=== PATIENT | female | born 1970 | race Caucasian/White ===

== ENCOUNTER 2020-03-28 13:03 | Emergency (ER) | payer SELFPAY ==
[2020-03-28 13:17] VITALS: BP 137/83
[2020-03-28] MEDS ORDERED: HYDROCODONE/ACETAMINOPHEN 5-325 MG TABLET PO ONE (13:29)
[2020-03-28] MEDS ORDERED: CYCLOBENZAPRINE HCL 10 MG TABLET PO ONE (13:29)
--- NOTE | 2020-03-28 14:07 | RADIOLOGY REPORT (SQ) ---
EXAM DESCRIPTION: HUMERUS RIGHT IMAGES COMPLETED DATE/TIME: 03/28/2020 1:57 pm REASON FOR STUDY: injury COMPARISON: None. NUMBER OF VIEWS: Two views. TECHNIQUE: Two radiographic images were acquired of the right humerus to include elbow and shoulder in at least one projection. LIMITATIONS: None. FINDINGS: MINERALIZATION: Normal. BONES: No acute fracture or dislocation. No worrisome bone lesions. SOFT TISSUES: No obvious swelling or foreign body. OTHER: No other significant finding. IMPRESSION: NO RADIOGRAPHIC EVIDENCE OF ACUTE INJURY. TECHNICAL DOCUMENTATION: JOB ID: [id number] [place]-72 2010 [employer]- All Rights Reserved Reading location - IP/workstation name: [employer]
--- NOTE | 2020-03-28 14:08 | RADIOLOGY REPORT (SQ) ---
EXAM DESCRIPTION: WRIST RIGHT 3 VIEWS IMAGES COMPLETED DATE/TIME: 03/28/2020 1:57 pm REASON FOR STUDY: injury COMPARISON: None. EXAM PARAMETERS: NUMBER OF VIEWS: Three views. TECHNIQUE: AP, lateral and oblique radiographic images acquired of the right wrist. LIMITATIONS: None. FINDINGS: MINERALIZATION: Normal. BONES: No acute fracture or dislocation. 2 mm old ulnar styloid avulsion. No worrisome bone lesions . JOINTS: No effusion. SOFT TISSUES: No significant soft tissue swelling. No radiopaque foreign body. OTHER: No other significant finding. IMPRESSION: No acute fracture or dislocation. 2 mm old ulnar styloid avulsion. TECHNICAL DOCUMENTATION: JOB ID: [id number] [place]-72 2010 [employer]- All Rights Reserved Reading location - IP/workstation name: [email or web address]
--- NOTE | 2020-03-28 14:10 | RADIOLOGY REPORT (SQ) ---
EXAM DESCRIPTION: SHOULDER RIGHT 2 OR MORE VIEWS IMAGES COMPLETED DATE/TIME: 03/28/2020 1:57 pm REASON FOR STUDY: injury COMPARISON: 10/16/2011 NUMBER OF VIEWS: Three views. TECHNIQUE: Internal rotation, external rotation, and Y view images acquired of the right shoulder. LIMITATIONS: None. FINDINGS: MINERALIZATION: Normal. BONES: No acute fracture. Similar mild AC joint arthrosis. No worrisome bone lesions. JOINTS: No dislocation. VISUALIZED LUNGS AND RIBS: No pneumothorax. No rib fracture. SOFT TISSUES: No radiopaque foreign body. OTHER: No other significant finding. IMPRESSION: NO RADIOGRAPHIC EVIDENCE OF ACUTE INJURY. TECHNICAL DOCUMENTATION: JOB ID: [id number] [place]-72 2010 [employer] All Rights Reserved Reading location - IP/workstation name: [email or web address]
--- NOTE | 2020-03-28 14:12 | RADIOLOGY REPORT (SQ) ---
EXAM DESCRIPTION: T SPINE AP/LAT IMAGES COMPLETED DATE/TIME: 03/28/2020 1:57 pm REASON FOR STUDY: injury COMPARISON: None. NUMBER OF VIEWS: Two views. TECHNIQUE: AP and lateral radiographic images acquired of the thoracic spine. LIMITATIONS: None. FINDINGS: MINERALIZATION: Normal. ALIGNMENT: Intact. VERTEBRAE: No fracture or bone lesion. Maintained height, normal segmentation. DISCS: Multilevel disc space narrowing with osteophytes. HARDWARE: None in the spine. MEDIASTINUM AND SOFT TISSUES: Normal heart size and aortic contour. No soft tissue abnormality. VISUALIZED LUNG MARTIN: Clear. OTHER: No other significant finding. IMPRESSION: SPONDYLOSIS WITHOUT BONE LESION OR FRACTURE. TECHNICAL DOCUMENTATION: JOB ID: [id number] [place]-72 2010 [employer]- All Rights Reserved Reading location - IP/workstation name: [email or web address]
--- NOTE | 2020-03-28 14:14 | RADIOLOGY REPORT (SQ) ---
EXAM DESCRIPTION: L SPINE WHOLE IMAGES COMPLETED DATE/TIME: 03/28/2020 1:57 pm REASON FOR STUDY: injury COMPARISON: None. NUMBER OF VIEWS: Five views including obliques. TECHNIQUE: AP, lateral, oblique, and sacral radiographic images acquired of the lumbar spine. LIMITATIONS: None. FINDINGS: MINERALIZATION: Normal. SEGMENTATION: Normal. No transitional anatomy. ALIGNMENT: Normal. VERTEBRAE: Maintained height. No fracture or worrisome bone lesion. DISCS: No significant disc space narrowing or osteophytes. POSTERIOR ELEMENTS: Pedicles and facets are intact. No pars defect or posterior arch defects. Facet arthropathy is present. HARDWARE: None in the spine. PARASPINAL SOFT TISSUES: Normal. PELVIS: Intact as visualized. No fractures or worrisome bone lesions. SI joints intact with mild dege nerative changes. OTHER: No other significant finding. IMPRESSION: No evidence for acute injury. TECHNICAL DOCUMENTATION: JOB ID: [id number] [place]-72 2010 [employer]- All Rights Reserved Reading location - IP/workstation name: [email or web address]
--- NOTE | 2020-03-28 14:21 | ER Document Report ---
HPI - HPI Patient complains to provider of: fall Time Seen by Provider: 03/28/20 13:23 Pain Level: 1 Context: 49-year-old female past medical history significant for anxiety and insomnia presents to the emergency room after sustaining a trip and fall in her garage 2 days ago. States she landed on her right side and low back. Denies hitting her head. Denies any loss of consciousness. She is complaining of right shoulder, right humerus, right wrist, mid and low back pain. She denies any loss control of her bowels or bladder. No saddle anesthesia. No generalized weakness. New numbness or tingling to her upper or lower extremities. Denies any urinary issues. States she has been taking ibuprofen without relief. Associated Symptoms: None Exacerbated by: Movement Relieved by: Denies Similar symptoms previously: No Recently seen / treated by doctor: No - ROS Systems Reviewed and Negative: Yes All other systems reviewed and negative - NEURO Neurology: DENIES: Headache, Weakness - CARDIOVASCULAR Cardiovascular: DENIES: Chest pain - GASTROINTESTINAL Gastrointestinal: DENIES: Abdominal Pain, Nausea - URINARY Urinary: DENIES: Dysuria, Urgency, Frequency - REPRODUCTIVE Reproductive: DENIES: : - MUSCULOSKELETAL Musculoskeletal: REPORTS: Extremity pain, Back Pain - DERM Skin Color: Normal Skin Problems: None Past Medical History - General Information source: Patient - Social History Smoking Status: Current Every Day Smoker Frequency of alcohol use: None Drug Abuse: Marijuana Family History: Reviewed & Not Pertinent Psychiatric Medical History: Reports: Hx Depression Past Surgical History: Reports: Hx Hysterectomy Vertical Provider Document - CONSTITUTIONAL Agree With Documented VS: Yes Exam Limitations: No Limitations General Appearance: Mild Distress - INFECTION CONTROL TRAVEL OUTSIDE OF THE [place] IN LAST 30 DAYS: No - HEENT HEENT: Atraumatic, Normocephalic - NECK Neck: Normal Inspection, Supple, Thyroid Normal - RESPIRATORY Respiratory: Breath Sounds Normal, No Respiratory Distress, Chest Non-Tender - CARDIOVASCULAR Cardiovascular: No Murmur, Bradycardia - BACK Back: Abnormal Inspection - Tenderness on palpation to the thoracic spine from T4-T6, tenderness to the lower lumbar region from L4-S1. There is tenderness over the right sciatic notch. No step-offs, no deformities. Negative straight leg raising bilaterally.. negative: CVA Tenderness-Right, CVA Tenderness-Left - MUSCULOSKELETAL/EXTREMETIES Musculoskeletal/Extremeties: Tender - Tenderness on the right shoulder to palpation over the AC joint, painful range of motion with internal and external rotation of the right shoulder. Tenderness on palpation to the mid right humerus but no deformity noted. Full range of motion to right elbow without pain. Notes: Tenderness on palpation to the distal right radius. Painful range of motion with lateral movement to the right wrist. No obvious deformity. No swelling. - NEURO Level of Consciousness: Awake, Alert Motor/Sensory: No Motor Deficit, No Sensory Deficit Notes: Positive right radial pulse. Capillary refill less than 3 seconds. Ambulatory with a steady gait. Neurovascularly intact. Pe Manager strength is equal and adequate bilaterally. - DERM Integumentary: Warm, Dry Course - Re-evaluation Re-evalutation: 03/28/20 14:40 Patient is resting comfortably with decreased pain. Ambulatory with steady gait. Neurovascularly intact. Reviewed all x-ray results with patient, discussed the spondylosis of the thoracic spine. The old avulsion fracture of the right ulnar styloid. Right shoulder AC arthrosis. Lumbar spine with degenerative disc disease. However no acute fractures. Patient was counseled to continue with Tylenol and or Motrin as needed for pain. Flexeril as prescribed. Outpatient follow-up with primary care physician if not improving in 2 to 3 days. Patient was given strict return to the emergency room guidelines. Return for any new or worsening symptoms. All questions were answered. Patient verbalized understanding and agrees with plan of care. - Vital Signs Vital signs: Temp Pulse Resp BP Pulse Ox 97.6 F 57 L 20 137/83 H 99 03/28/20 13:13 03/28/20 13:13 03/28/20 13:13 03/28/20 13:13 03/28/20 13:13 - Laboratory Results Critical Laboratory Results Reviewed: No Critical Results - Radiology Results Critical Radiology Results Reviewed: No Critical Results Discharge - Discharge Clinical Impression: Arthrosis of right shoulder region, Degenerative disc disease, lumbar, Spondylosis, thoracic, Back pain with right-sided sciatica Fall Qualifiers: Encounter type: initial encounter Qualified Code(s): W19.XXXA - Unspecified fall, initial encounter Contusion Qualifiers: Encounter type: initial encounter Contusion area: shoulder Laterality: right Qualified Code(s): S40.011A - Contusion of right shoulder, initial encounter Condition: Stable Disposition: HOME, SELF-CARE Instructions: Arthritis ([facility]), Contusion ([facility]), Sciatica ([facility]), Shoulder Injury ([facility]) Additional Instructions: You have no acute fractures noted on any of your x-rays. Take the Flexeril along with Tylenol and or Motrin as needed for pain. Follow-up with your primary care physician if not improving to 3 days. Return to the emergency room for any new or worsening symptoms. Prescriptions: Cyclobenzaprine HCl [Flexeril 10 mg Tablet] 10 mg PO TIDP PRN #15 tab PRN Reason: Forms: Return to Work Referrals: KAREL MARTIN MD [Primary Care Provider] - Follow up as needed
--- OUTSIDE RECORDS SUMMARY | 2020-03-30 10:43 | XMS REPORT ---
:1970 Author Organization [facility] Address [facility] [address] [place] [id number] Care Team Providers Name Role Phone Farhana Manuel Attending Clinician Unavailable Eva Elise Attending Clinician Unavailable Deonte Padilla Attending Clinician Unavailable Meagan Cedeno Attending Clinician Unavailable Allergies, Adverse Reactions, Alerts This patient has no known allergies or adverse reactions. Medications This patient has no known medications. Problems This patient has no known problems. Procedures Procedure Date / Time Performed Performing Clinician Devic e OFFICE OUTPATIENT VISIT 15 MINUTES 2017-02-14 16:08:00 OFFICE OUTPATIENT VISIT 25 MINUTES 2016-09-13 10:43:00 OFFICE OUTPATIENT VISIT 15 MINUTES 2016-03-16 09:49:00 OFFICE OUTPATIENT VISIT 25 MINUTES 2015-12-16 10:47:00 OFFICE OUTPATIENT VISIT 15 MINUTES 2015-09-03 12:09:00 OFFICE OUTPATIENT VISIT 15 MINUTES 2015-06-15 09:44:00 OFFICE OUTPATIENT VISIT 15 MINUTES 2015-05-04 13:45:00 Results Test Description Test Time Test Comments Text Results Atomic Results Result Comments 7-Aminoclonazepam 2018-09-04 22:52:00 Test Item Value Reference Range Comments 7-Aminoclonazepam (test code = 89276-3) Not Detected [id number] 22:52:00 Test Item Value Reference Range Comments Nordiazepam (test code = 34035-7) Not Detected Orhewpve8249-02-60 22:52:00 Test Item Value Reference Range Comments Oxazepam (test code = 08041-2) Not Detected Uefzajyryedvn0388-53-48 22:52:00 Test Item Value Reference Range Comments Buprenorphine (test code = 3414-0) Not Detected Ethyl Sfmppqylyja6278-49-04 22:52:00 Test Item Value Reference Range Comments Ethyl Glucuronide (test code = 80195-4) Detected Dxbilpnuf2889-18-11 22:52:00 Test Item Value Reference Range Comments Methadone (test code = 3773-9) Not Detected Okshocw9495-13-26 22:52:00 Test Item Value Reference Range Comments Codeine (test code = 01390-8) Not Detected [id number] 22:52:00 Test Item Value Reference Range Comments pH (test code = 39534-0) 6.2 U/L Vtgxdnqfcqf7172-13-33 22:52:00 Test Item Value Reference Range Comments Hydrocodone (test code = 38143-2) Not Detected Jwgxhaoddltne1358-54-83 22:52:00 Test Item Value Reference Range Comments Hydromorphone (test code = 9834-3) Not Detected Xitbitaff1900-94-14 22:52:00 Test Item Value Reference Range Comments Oxycodone (test code = 33220-1) Not Detected Cccadepemeh7062-82-29 22:52:00 Test Item Value Reference Range Comments Oxymorphone (test code = 29754-1) Not Detected Ktrcgjgqrtpsw3842-08-38 22:52:00 Test Item Value Reference Range Comments Phencyclidine (test code = 8234-7) Not Detected Mufoloyboqdbzym4892-76-63 22:52:00 Test Item Value Reference Range Comments Benzoylecgonine (test code = 8187-7) Not Detected Uhmalrekapo5967-10-20 22:52:00 Test Item Value Reference Range Comments Amphetamine (test code = 34087-3) Detected Hjcvhmkxtx0498-08-67 22:52:00 Test Item Value Reference Range Comments Gabapentin (test code = 9738-6) Not Detected Aamxsvwl3516-53-85 22:52:00 Test Item Value Reference Range Comments Fentanyl (test code = 28410-4) Not Detected Whypasug7858-40-21 22:52:00 Test Item Value Reference Range Comments Tramadol (test code = 78051-9) Not Detected Thyroid Panel With TSH (S2515) (32912)2015-05-05 00:00:00 Test Item Value Reference Range Comments T3 Uptake (test code = 3050-2) 29 % 22-35 T4 (test code = 3026-2) 6.0 ug/dL 4.5-12.0 Free Thyroxine Index (test code = 07659-5) 1.7 1.4-3 .8 TSH (test code = 3016-3) 0.780 uIU/mL 0.350-4.500 CMP w/ ESTIMATED GFR (S2402) (91159)2015-05-05 00:00:00 Test Item Value Reference Range Comments Albumin (test code = 1751-7) 4.1 g/dL 3.5-5.2 Total Protein (test code = 2885-2) 6.4 g/dL 6.0-8.3 Alkaline Phosphatase (test code = 6768-6) 45 U/L 39-117 ALT/SGPT (test code = 1742-6) 8 U/L 0-35 Est GFR, NonAfrican [place]er (test code = >89 mL/min 84077-9) Glucose (test code = 2345-7) 92 mg/dL 70-99 Creatinine (test code = 2160-0) 0.60 mg/dL 0.50-1.10 AST/SGOT (test code = 1920-8) 11 U/L 0-37 Potassium (test code = 2823-3) 4.3 mEq/L 3.5-5.3 BUN (test code = 3094-0) 9 mg/dL 6-23 Chloride (test code = 2075-0) 106 mEq/L 96-112 Est GFR, (test code = 18184-4) >89 mL/min Sodium (test code = 2951-2) 137 mEq/L 135-145 CO2 (test code = 8-9) 26 mEq/L 19-32 Bilirubin, Total (test code = 1974-2) 0.6 mg/dL 0.2-1.2 Calcium (test code = 06393-4) 9.0 mg/dL 8.4-10.5 CBC w/ Diff (P37297) (78334)2015-05-05 00:00:00 Test Item Value Reference Range Comments Lymph % (test code = 736-9) 29 % 12-46 MCH (test code = 785-6) 29.9 pg 26.0-34.0 Absolute Baso (test code = 0.1 K/uL 0.0-0.1 704-7) Platelet Count (test code = 273 K/uL 150-400 777-3) Absolute Ripley (test code = 0.6 K/uL 0.1-1.0 742-7) Hemoglobin (test code = 718-7) 12.4 g/dL 12.0-15.0 Eos % (test code = 713-8) 3 % 0-5 RBC (test code = 789-8) 4.15 MIL/uL 3.87-5.11 Granulocyte % (test code = 60 % 43-77 770-8) MCV (test code = 787-2) 89.6 fL 78.0-100.0 Ripley % (test code = 5905-5) 7 % 3-12 Absolute Eos (test code = 711-2) 0.2 K/uL 0.0-0.7 Absolute Lymph (test code = 2.3 K/uL 0.7-4.0 731-0) Baso % (test code = 706-2) 1 % 0-1 Smear Review (test code = Criteria for review not met 5909-7) Hematocrit (test code = 4544-3) 37.2 % 36.0-46.0 MCHC (test code = 786-4) 33.3 g/dL 30.0-36.0 Absolute Gran (test code = 4.8 K/uL 1.7-7.7 751-8) WBC (test code = 6690-2) 8.0 K/uL 4.0-10.5 MPV (test code = 69011-6) 10.6 fL 8.6-12.4 RDW (test code = 788-0) 13.7 % 11.5-15.5 Assessments Condition Name Status Diagnosis Date Treating Clinici an Blood tests for routine general physical Active examination Anxiety Active Anxiety Active Anxiety Active Adult body mass index 26.0-26.9 Active Adult body mass index 26.0-26.9 Active Adult body mass index 26.0-26.9 Active Muscle spasm of back Active Muscle spasm of back Active Muscle spasm of back Active Muscle spasm of back Active Body mass index (BMI) of 27.0-27.9 in adult Active Body mass index (BMI) of 27.0-27.9 in adult Active Body mass index (BMI) of 27.0-27.9 in adult Active Body mass index (BMI) of 27.0-27.9 in adult Active Body mass index (BMI) of 27.0-27.9 in adult Active Body mass index (BMI) of 27.0-27.9 in adult Active Anxiety Active Anxiety Active Anxiety Active Anxiety Active Insomnia Active Insomnia Active Insomnia Active Insomnia Active Insomnia Active Insomnia Active Insomnia Active Encounter for health education Active Encounter for health education Active Encounter for health education Active Encounter for health education Active Encounter for health education Active Encounter for health education Active Encounter for health education Active Encounters Start End Encounter Admission Attending Care Care Encounter Date/Time Date/Time Type Type Clinicians Facility Department ID 2018-09-04 2018-09-04 [facility] 32 [id number] 00:00:00 00:00:00 [facility] [id number] Evaluation Services [id number] 2017-02-14 2017-02-14 Outpatient K[facility] [id number] 16:08:00 16:08:00 [facility] 2016-09-13 2016-09-13 Outpatient Lois [facility] [id number] 10:43:00 10:43:00 [facility] 2016-03-16 2016-03-16 Outpatient Arik [facility] [id number] 09:49:00 09:49:00 [facility] 2015-12-16 2015-12-16 [id number] 10:47:00 10:47:00 [facility] 2015-09-03 2015-09-03 Outpatient Randy [facility] [id number] 12:09:00 12:09:00 [facility] 2015-06-15 2015-06-15 Outpatient Bishop [facility] [id number] 09:44:00 09:44:00 [facility] 2015-05-04 2015-05-04 Outpatient [facility] [id number] 13:45:00 13:45:00 [facility] Social History This patient has no known social history. Vital Signs This patient has no known vital signs.
== END 2020-03-28 14:45 | disposition home or self-care (01) ==
LOC: ER 13:03
DX: M19.011 Primary osteoarthritis, right shoulder (principal); M51.36 Other intervertebral disc degeneration, lumbar region; M47.814 Spondylosis without myelopathy or radiculopathy, thoracic region; M54.41 Lumbago with sciatica, right side; S40.011A Contusion of right shoulder, initial encounter; W01.0XXA Fall on same level from slipping, tripping and stumbling without subsequent striking against object, initial encounter; Y92.008 Other place in unspecified non-institutional (private) residence as the place of occurrence of the external cause; F17.200 Nicotine dependence, unspecified, uncomplicated
CPT/HCPCS: 72070; 72110; 99284